=== PATIENT | male | born 1965 | race Caucasian/White ===

== ENCOUNTER → 2019-08-23 | Emergency (ER) | payer MEDICAID, OTHER ==
[~2019-08-23] VITALS: Ht 177.8 cm; Wt 79.4 kg
[~2019-08-23] MED LIST: SODIUM CHLORIDE 0.9% 1,000 ML IV ONE
[2019-08-23 19:33] LABS: Basophils # (auto) 0.1 10 ^3/uL (0-0.2); Basophils % (auto) 0.6 % (0.0-2.0); Eosinophils # (auto) 0.3 10 ^3/uL (0-0.8); Eosinophils % (auto) 2.7 % (0.0-7.0); Hemoglobin 17.2 g/dL (13.5-17.5); Lymphocytes # (auto) 3.8 10 ^3/uL (0.4-5.4); Mean Corpuscular Hemoglobin 30.1 pg (28.0-32.0); Mean Corpuscular Volume 91.3 fL (80.0-100.0); Monocytes # (auto) 0.9 10 ^3/uL (0-1.3); Monocytes % (auto) 9.4 % (0.0-12.0); Neutrophils # (auto) 4.7 10 ^3/uL (1.6-8.6); Neutrophils % (auto) 48.3 % (37.0-80.0); Nucleated Red Blood Cells % 0.1 %; Platelet Count (auto) 251 10^3/uL (140-450); Red Cell Distribution Width 12.7 % (11.8-14.3); White Blood Cell 9.7 10^3/uL (4.4-10.8)
[2019-08-23 19:44] LABS: Salicylate 2.2 mg/dL (2.8-20.0)
[2019-08-23 19:45] LABS: Albumin 3.7 g/dL (3.4-5.0); BUN/Creatinine Ratio 17.7; Calcium 8.6 mg/dL (8.5-10.1); Potassium 4.5 mmol/L (3.5-5.1)
[2019-08-23 19:48] LABS: Bilirubin, Total 0.4 mg/dL (0.2-1.0); Total Protein 8.2 g/dL (6.4-8.2)
[2019-08-23 19:57] LABS: Acetaminophen < 2.0 ug/mL (10-30)
[2019-08-23 21:12] VITALS: BP 124/71
== END | disposition home or self-care (01) ==
LOC: EDBD 18:53 → ER 18:58
DX: T40.1X1A Poisoning by heroin, accidental (unintentional), initial encounter (principal); R53.83 Other fatigue; R42 Dizziness and giddiness; F17.210 Nicotine dependence, cigarettes, uncomplicated; Y92.89 Other specified places as the place of occurrence of the external cause
CPT/HCPCS: 36415; 80053; 80320; 80329; 85025; 99283; J7030